=== PATIENT | female | born 1965 | race Caucasian/White ===

== ENCOUNTER 2019-07-04 22:21 | Emergency (ER) | payer OTHER ==
[2019-07-04 22:27] VITALS: BMI 24.7
[2019-07-04] MEDS ORDERED: FAMOTIDINE 20 MG/50 ML IVPB 20 MG/50 ML MG IVPB ONE ×2 (22:40→23:19)
[2019-07-04] MEDS ORDERED: MAG HYDROX/AL HYDROX/SIMETH 30 ML UNIT-DOSE CUP PO ONE (22:40)
[2019-07-04] MEDS ORDERED: ACETAMINOPHEN 1000 MG/100 ML VIAL (NON FORMULARY) IVPB ONE (22:40)
[2019-07-04] MEDS ORDERED: SODIUM CHLORIDE 0.9% 500 ML INFUS.BAG IV ONE (22:41)
--- NOTE | 2019-07-04 22:47 | PDOC ---
History of Present Illness - General Chief Complaint: Syncope/Near Syncope Stated Complaint: PAST OUT Time Seen by Provider: 07/04/19 22:27 - History of Present Illness Initial Comments: 07/04/19 22:42 54 yo F PMH PUD, HTN, HLD, GERD, s/p cholecystectomy, prolapsed bladder s/p repair 5 year ago, presenting with syncope. Patient primarily speaks Romansh but has some [place]ander. States that she has had nausea with three episodes of nbnb vomiting over past two days, diffuse abdominal pain, and chills for the past two days. Similar to her previous ulcer symptoms but more intense. Reports that today she was standing at [employer] approximately 40 minutes before arrival to ED when she felt like her "vision went dark", positive LOC. Did not fall or hit her head ( caught her). States that she had similar episodes in the past when her GERD or ulcers were acting up and she was not able to keep down food. Specifically denies CP, SOB, constipation/diarrhea, GIBBS, urinary changes, rectal bleeding, or dark stools. Endorses N/V, chills, poor intake, and diffuse abdominal pain. Past History - Past Medical History Allergies/Adverse Reactions: Allergies Allergy/AdvReac Type Severity Reaction Status Date / Time ciprofloxacin [From Cipro] Allergy Verified 07/04/19 22:27 Sulfa (Sulfonamide Allergy Verified 07/04/19 22:27 Antibiotics) Asthma: Yes Cardiac Disorders: Yes (TACHYCARDIA) COPD: No - Surgical History Cholecystectomy: Yes - Psycho Social/Smoking Cessation Hx Smoking History: Never smoked Review of Systems - Review of Systems Comments:: 07/04/19 22:55 GENERAL/CONSTITUTIONAL: Chills. No weakness. HEAD, EYES, EARS, NOSE AND THROAT: No change in vision. No ear pain or discharge. No sore throat. CARDIOVASCULAR: No chest pain or shortness of breath. RESPIRATORY: No cough, wheezing, or hemoptysis. GASTROINTESTINAL: Significant nausea and vomiting. No diarrhea or constipation. GENITOURINARY: No dysuria, frequency, or change in urination. MUSCULOSKELETAL: No joint or muscle swelling or pain. No neck or back pain. SKIN: No rash NEUROLOGIC: Positive loss of consciousness. No headache, vertigo, or change in strength/sensation. ENDOCRINE: No increased thirst. No abnormal weight change. HEMATOLOGIC/LYMPHATIC: No anemia, easy bleeding, or history of blood clots. ALLERGIC/IMMUNOLOGIC: No hives or skin allergy *Physical Exam - Vital Signs Last Vital Signs Temp Pulse Resp BP Pulse Ox 97.6 F 72 18 145/68 100 07/04/19 22:24 07/04/19 22:24 07/04/19 22:24 07/04/19 22:24 07/04/19 22:24 - Physical Exam Comments: 07/04/19 22:56 Gen: well-developed, well-nourished, appears distressed, actively retching Neuro: AAOX4, CN II-XII intact, FTN intact, EOMI, PERRLA, 5/5 strength, SILT HEENT: atraumatic, normocephalic, dry mucous membranes Neck: trachea midline, supple CV: regular rate, regular rhythm, no murmurs, rubs, or gallops Pulm: CTA b/l, no wheezing Abd: soft, non-distended, non-tender MSK: full ROM, intact pulses Extr: no edema, no deformities Skin: warm, dry ED Treatment Course - LABORATORY CBC & Chemistry Diagram: 07/05/19 00:13 07/05/19 00:13 - RADIOLOGY Radiology Studies Ordered: Category Date Time Status CXRPORT [CHEST X-RAY PORTABLE*] [RAD] Stat Radiology 07/04/19 22:41 Ordered Medical Decision Making - Medical Decision Making 07/04/19 22:57 Concern for ACS vs PUD vs pancreatitis vs GERD. - CBC, CMP - EKG, CXR, trop - 2L NS - Ofirmev - Famotidine - Zofran - reassess 07/04/19 23:13 EKG at 89 bpm, CXR with no acute pathology. 07/05/19 00:[address] Duff. Discharge - Discharge Information Problems reviewed: Yes Clinical Impression/Diagnosis: Syncope Qualifiers: Syncope type: vasovagal syncope Qualified Code(s): R55 - Syncope and collapse Condition: Stable Disposition: HOME - Follow up/Referral Referrals: Timo Kaur MD [Staff Physician] - ON STAFF,NOT [Primary Care Provider] - - Patient Discharge Instructions Patient Printed Discharge Instructions: DI for Syncope in Adults (Fainting) Additional Instructions: Please make a follow up appointment with your PCP ([facility]). A referral to a PCP is also provided here for you. If you experience any new, worsening, or concerning symptoms, including severe headache, loss of consciousness, chest pain, shortness of breath, dizziness, or any other concerns, please return to the emergency department. - Post Discharge Activity
[2019-07-04] MEDS ORDERED: ONDANSETRON 4 MG/2 ML VIAL IVPUSH ONE (22:48)
[2019-07-04] MEDS ORDERED: SODIUM CHLORIDE 0.9% 1000 ML INFUS.BAG IV ONE (22:49)
[2019-07-04] MEDS ORDERED: ONDANSETRON 4 MG/2 ML VIAL ONE (23:18)
[2019-07-04] MEDS ORDERED: ACETAMINOPHEN INJECTION 100 ML IVPB ONE (23:18)
--- NOTE | 2019-07-05 00:20 | PDOC ---
*Physical Exam - Vital Signs Last Vital Signs Temp Pulse Resp BP Pulse Ox 97.6 F 72 18 145/68 100 07/04/19 22:24 07/04/19 22:24 07/04/19 22:24 07/04/19 22:24 07/04/19 22:24 ED Treatment Course - LABORATORY CBC & Chemistry Diagram: 07/05/19 00:13 07/05/19 00:13 Medical Decision Making - Medical Decision Making 07/05/19 00:19 Pt received on sign out from Dr. Rubio 54 y/o female presenting after syncope at [facility] today. Described as tunnels closing in and darkened vision. Nausea w/o vomiting. Labs show pt is very dehydrated. Pt was given GI cocktail (pepcid, zofran) and fluids (2L NS). CXR is negative. 07/05/19 04:02 Patient tolerating PO. Plan to d/c home, f/u PCP. Discharge - Discharge Information Problems reviewed: Yes Clinical Impression/Diagnosis: Syncope Qualifiers: Syncope type: vasovagal syncope Qualified Code(s): R55 - Syncope and collapse Condition: Stable Disposition: HOME - Admission No - Follow up/Referral Referrals: Timo Kaur MD [Staff Physician] - ON STAFF,NOT [Primary Care Provider] - - Patient Discharge Instructions Patient Printed Discharge Instructions: DI for Syncope in Adults (Fainting) Additional Instructions: Please make a follow up appointment with your PCP ([facility]). A referral to a PCP is also provided here for you. If you experience any new, worsening, or concerning symptoms, including severe headache, loss of consciousness, chest pain, shortness of breath, dizziness, or any other concerns, please return to the emergency department. - Post Discharge Activity
[2019-07-05 00:45] LABS: BASO % 0.5 % (0-2.0); EOS % 0.3 % (0-4.5); HEMATOCRIT 47.1 % (32.4-45.2); HEMOGLOBIN 15.8 GM/dL (10.7-15.3); MCH 29.4 pg (25.7-33.7); MCHC 33.5 g/dl (32.0-36.0); MEAN CELL VOLUME 87.8 fl (80-96); MEAN PLT VOLUME 7.6 fl (7.5-11.1); NEUT % 78.2 % (42.8-82.8); PLATELET COUNT 393 K/MM3 (134-434); RBC 5.36 M/mm3 (3.60-5.2); RDW 14.5 % (11.6-15.6); WHITE BLOOD COUNT 10.1 K/mm3 (4.0-10.0)
--- NOTE | 2019-07-05 01:36 | PDOC ---
Documentation entered by Gokul Linn SCRIBE, acting as scribe for Timmy Mcbride MD. Timmy Mcbride MD: This documentation has been prepared by the Kaveh zepeda Daniel, SCRIBE, under my direction and personally reviewed by me in its entirety. I confirm that the documentation accurately reflects all work, treatment, procedures, and medical decision making performed by me. Attending Attestation - Resident Resident Name: Sandra Rubio - ED Attending Attestation I have performed the following: I have examined & evaluated the patient, The case was reviewed & discussed with the resident, I agree w/resident's findings & plan, Exceptions are as noted - HPI HPI: 07/04/19 22:51 The patient is a 54 year old female with a past medical history of peptic ulcer disease, HTN, HLD, and GERD here today for evaluation of syncope. The patient reports that she has been nauseous and vomiting for the past 2 days and has had a poor PO intake. She notes today that while at [employer] her vision went black and she lost consciousness. She states that her caught her and denies any head strike. Patient states that her current symptoms feel similar to previous ulcer flare ups but is more intense now. She also notes chills. Patient denies headache, lightheadedness. Denies fever. Denies chest pain, shortness of breath. Denies diarrhea. Allergies: ciprofloxacin, sulfa Surgical history: cholecystectomy - Physicial Exam PE: 07/04/19 23:41 Vitals: Triage Vital signs reviewed General Appearance: No acute distress, well nourished well developed, Neck: Supple; no Nucal rigidity Chest Wall: Nontender Cardiac: Regular rate and rhythym, no murmurs, no rubs, no gallops, Lungs: Clear to auscultation bilateral, good air movement bilaterally, Abdomen: Soft, non distended, normal bowel sounds, non tender to palpation Extremities: Full range of motion to all extremities, no cyanosis, clubbing, or edema Skin: Warm and dry, no rashes or lesions, no rash, no petechiae Psych: Normal mood, normal affect - Medical Decision Making 07/04/19 23:41 54 years old with past medical history significant for peptic ulcer disease presents to the ED with several day history of nausea vomiting and loose stools after eating a cake. No other travel no sick contacts no recent antibiotics symptoms are moderate persistent constant no exacerbating relieving factors. Tonight while standing had a syncopal episode was caught her knees to the ground in the context of this recent GI illness We will hydrate check labs Pepcid IV Tylenol Zofran observe and reassess 07/05/19 01:48 Dr. Julien to follow up labs po challenge and reassess patient Heart Score/ECG Review - ECG Impressions Comment:: 07/05/19 01:48 EKG performed at 2251 demonstrates normal sinus rhythm no ST elevations or T wave inversions Interpreted by me.
[2019-07-05 02:22] LABS: ALBUMIN 4.4 g/dl (3.4-5.0); ALK PHOS 133 U/L (45-117); ANION GAP 8 MMOL/L (8-16); BILIRUBIN,TOTAL 0.4 mg/dL (0.2-1); CALCIUM 9.5 mg/dL (8.5-10.1); CHLORIDE 107 mmol/L (98-107); CO2 23 mmol/L (21-32); CREATININE 0.7 mg/dL (0.55-1.3); GLUCOSE,RANDOM 88 mg/dL (74-106); LIPASE 91 U/L (73-393); POTASSIUM 4.4 mmol/L (3.5-5.1); SGOT/AST 25 U/L (15-37); SGPT/ALT 28 U/L (13-61); SODIUM 138 mmol/L (136-145); TOT PROT 7.7 g/dl (6.4-8.2)
[2019-07-05 06:00] VITALS: BP 122/80; PULSE 89; TEMP 98
--- NOTE | 2019-07-05 16:59 | EKG ---
Test Reason : Blood Pressure : / mmHG Vent. Rate : 089 BPM Atrial Rate : 089 BPM P-R Int : 164 ms QRS Dur : 082 ms QT Int : 388 ms P-R-T Axes : 053 043 034 degrees QTc Int : 472 ms NORMAL SINUS RHYTHM POSSIBLE LEFT ATRIAL ENLARGEMENT NO PREVIOUS ECGS AVAILABLE Confirmed by RONY KOCH MD ([id number]) on 07/05/2019 4:58:19 PM Referred By: Confirmed By:RONY KOCH MD
== END 2019-07-05 05:30 | disposition home or self-care (01) ==
LOC: JER 22:21
PROC: 3E033GC Introduction of Other Therapeutic Substance into Peripheral Vein, Percutaneous Approach (ICD-10-PCS; principal; 2019-07-04)
PROC: 3E033GC Introduction of Other Therapeutic Substance into Peripheral Vein, Percutaneous Approach (ICD-10-PCS; 2019-07-04)
PROC: 3E033NZ Introduction of Analgesics, Hypnotics, Sedatives into Peripheral Vein, Percutaneous Approach (ICD-10-PCS; 2019-07-04)
DX: R55 Syncope and collapse (principal); E86.0 Dehydration; I10 Essential (primary) hypertension; E78.5 Hyperlipidemia, unspecified; K21.9 Gastro-esophageal reflux disease without esophagitis; Z90.49 Acquired absence of other specified parts of digestive tract; Z88.2 Allergy status to sulfonamides
CPT/HCPCS: 36415; 71045-TC-FY; 80053; 82550; 83690; 84484; 85025; 93005; 93010; 96365; 96375; 99282-25; J0131; J7030